=== PATIENT | male | born 1935 | race Caucasian/White ===

== ENCOUNTER 2022-06-18 13:37 | Inpatient (IN) ==
--- NOTE | 2022-06-18 14:03 | Internal Med History&Physical ---
HPI History of Present Illness Patient information: Note initiated : 06/18/22 at 1:59 pm Service Date, if different from initiated Date: [] Patient: Patrice Canseco a 87 y/o M admitted on for Cholecystitis. Chief Complaint: [abdominal pain] Chief complaint: abdominal pain History of present illness: Mr. Canseco is a 87 year old M history of atrial fibrillation's, type 2 diabetes mellitus, essential hypertensions, dyslipidemia, restless leg syndrome, hypothyroidism, presenting with a few day history of abdominal pain with associated nausea vomiting. The abdominal pain is located in the right upper quadrant, cramping, constant, moderate to severe in severity. Outside hospital evaluations with abdominal ultrasound follow-up with CT of the abdomen showing signs of acute acalculous cholecystitis. Due to the fact that it will have to surgery on board, they request hospital to hospital transfer for surgical consultations. Dr. Jolley will be consulted on the case for potential surgical management. Patient takes Eliquis for his atrial fibrillation scholast and June 17. Moreover, patient's found to have hyper glycemia uncontrolled type 2 diabetes mellitus with admitting blood sugar level in the 300s. There is no reported LFT abnormalities. Constitutional Constitutional: Absent chills, excessive sweating, fatigue, fever(s) or weakness EENT Eyes: Absent blurry vision, change in vision, loss of vision or other visual disturbances Ears: Absent decreased hearing or tinnitus Nose, mouth and throat: Absent abnormal hearing, dry mouth, headache(s), nasal congestion or sore throat Cardiovascular Cardiovascular: Absent chest pain, chest pain at rest, edema, irregular heart rhythm or palpatations Respiratory Respiratory: Absent cough, dyspnea or wheezing Gastrointestinal Gastrointestinal: Present as per HPI, abdominal pain, nausea and vomiting; Absent constipation or diarrhea Musculoskeletal Musculoskeletal: Absent back pain, deformity, limited range of motion, muscle cramps, muscle weakness or numbness Integumentary Integumentary: Absent lesions, rash or wounds Neurological Neurological: Absent focal weakness, headache(s) or numbness Psychiatric Psychiatric: Absent anxiety, depression or hallucinations PFSH PFSH All Active Problems (Updated 06/18/22 @ 14:06 by Benjamin Manning MD) Acalculous cholecystitis (Acute) DMII (diabetes mellitus, type 2) (Acute) Atrial fibrillation (Acute) Dog bite (Acute) Low back pain (Acute) Right inguinal nerve entrapment syndrome (Acute) Sacroiliac joint dysfunction of right side (Acute) Gastritis (Acute) Tinea (Acute) Acute serous otitis media, right ear (Acute) Lower extremity edema (Acute) Otitis externa (Acute) Hyperkalemia (Acute) Annual physical exam (Acute) Restless leg syndrome (Acute) Secondary hyperparathyroidism of renal origin (Chronic) Localized edema due to fluid overload (Chronic) 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 (Chronic) Tinea cruris (Acute) Lung nodule (Acute) Pneumonia (Acute) Macroscopic hematuria (Acute) Medicare annual wellness visit, subsequent (Acute) Chronic kidney disease (CKD) stage G3a/A3, moderately decreased glomerular filtration rate (GFR) between 45-59 mL/min/1.73 square meter and albuminuria creatinine ratio greater than 300 mg/g (Chronic) Pain in left shoulder (Chronic) Benign prostatic hyperplasia with urinary obstruction (Chronic) Seizure disorder (Chronic) Erectile dysfunction (Chronic) Migraine (Chronic) Myalgia (Chronic) Back pain (Chronic) Peripheral neuropathy (Chronic) Intervertebral lumbar disc disorder with myelopathy, lumbar region (Chronic) Dermatitis (Chronic) Pulmonary nodule (Chronic) Hypertriglyceridemia (Chronic) Right inguinal pain (Chronic) Leg pain (Chronic) Venous insufficiency (Chronic) Hyperlipidemia (Chronic) Anxiety and depression (Chronic) Finger pain (Chronic) Neuralgia, neuritis, and radiculitis, unspecified (Chronic) RLQ abdominal pain (Chronic) Hypertension (Chronic) Gutierres's palsy (Chronic) Hip pain, right (Chronic) Hypothyroidism (Chronic) Osteoarthritis (Chronic) Allergic rhinitis (Chronic) Fatigue (Chronic) Sleep apnea (Chronic) Daytime hypersomnia (Chronic) Macular degeneration (Chronic) Encounter for long-term current use of medication (Chronic) Dehydration (Chronic) Vertigo (Chronic) Dizziness (Chronic) Anxiety (Chronic) GERD (gastroesophageal reflux disease) (Chronic) Arthralgia (Chronic) Muscle spasm (Chronic) Pain in right shoulder (Chronic) Uncontrolled type 2 diabetes mellitus with insulin therapy (Chronic) Medical History (Updated 06/18/22 @ 14:06 by Benjamin Manning MD) Abnormal angiogram (~04/30/19) Per Dr. Sharp four-vessel cerebral angiography with severe areas of intracranial stenosis. Most prominent left vertebral artery. Right anterior temporal artery which is severe, right A1 segment of the right RIAN moderately severe. Acute serous otitis media, right ear Allergic rhinitis Annual physical exam Anxiety Anxiety and depression Arthralgia Back pain Gutierres's palsy Affecting left face/eye winter 2013, persisting Benign prostatic hyperplasia with urinary obstruction Daytime hypersomnia Dehydration Dermatitis Dizziness Encounter for long-term current use of medication Erectile dysfunction Fatigue Finger pain GERD (gastroesophageal reflux disease) Hearing loss Pure Tone/Hearing Aids Hip pain, right Hyperlipidemia Hypertension Hypertriglyceridemia Hypothyroidism Intervertebral lumbar disc disorder with myelopathy, lumbar region Leg pain Lower extremity edema Lung nodule Macroscopic hematuria Macular degeneration Medicare annual wellness visit, subsequent Migraine Muscle spasm Myalgia Neuralgia, neuritis, and radiculitis, unspecified Osteoarthritis Otitis externa Pain in left shoulder Pain in right shoulder Peripheral neuropathy Pneumonia Pulmonary nodule Restless leg syndrome Right inguinal pain RLQ abdominal pain Seizure disorder Sleep apnea Stenosis of intracranial vessel Tinea Tinea cruris Uncontrolled type 2 diabetes mellitus with insulin therapy Venous insufficiency Vertigo Surgical History History of eye surgery (~2014) Left eye lid drooping, negatively affecting his vision and balance History of surgery (~2007) Implanted stimulator History of surgery 10/03/2019-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 Hx of inguinal hernia surgery (~2006) Family History Other Cancer Diabetes HTN (hypertension) Social History marital status: occupational status: retired alcohol intake frequency: does not drink substance use type: does not use MEDS/ALLERGIES Home Medications and Allergies Home Medications Medication Instructions Recorded Confirmed Type cyclosporine 0.05 % eye drops in a 1 drp ophthalmic (eye) Q12H 08/09/17 03/31/22 History dropperette (Restasis) loratadine 10 mg tablet (Claritin) 10 mg PO QDAY PRN 12/26/17 03/31/22 History cholecalciferol (vitamin D3) 125 1,000 unit PO QWEEK 09/28/18 03/31/22 History mcg (5,000 unit) tablet hydroxyzine HCl 25 mg tablet 25 mg PO QHS PRN itching #30 tabs 06/10/19 03/31/22 Rx acetaminophen 650 mg 650 mg PO Q8H 07/26/19 03/31/22 History tablet,extended release (Arthritis Pain Relief (acetaminophen) ER) lancing device with lancets kit #300 ea 06/25/20 03/31/22 Rx (Accu-Chek Softclix Lancing Device+Lancets kit) nystatin 100,000 unit/gram topical 1 applic topical BID #60 grams 03/30/21 03/31/22 Rx powder hydrochlorothiazide 25 mg tablet 25 mg PO QDAY #90 tabs 06/24/21 03/31/22 Rx oxybutynin chloride 5 mg 5 mg PO QDAY #90 tabs 06/24/21 03/31/22 Rx tablet,extended release 24 hr ciprofloxacin 0.3 %-dexamethasone 4 drp otic (ear) BID 7 days #7.5 mL 08/10/21 03/31/22 Rx 0.1 % ear drops,suspension (Ciprodex) ketoconazole 2 % topical cream See Rx Instructions .Route 09/28/21 03/31/22 Rx .COMPLEX #30 grams pen needle, diabetic 32 gauge x #100 ea 10/13/21 03/31/22 Rx 5/32" (BD Ultra-Fine Rae Pen Needle) thyroid (pork) 30 mg tablet 30 mg PO QDAY #90 tabs 10/21/21 03/31/22 Rx ([place] Thyroid) lidocaine 5 % topical patch See Rx Instructions .Route 12/21/21 03/31/22 Rx .COMPLEX #30 patches apixaban 5 mg tablet (Eliquis) 5 mg PO BID 3 months #180 tabs 12/27/21 03/31/22 Rx rosuvastatin 10 mg tablet (Crestor) 10 mg PO QDAY #90 tabs 01/04/22 03/31/22 Rx metoprolol tartrate 25 mg tablet 25 mg PO BID #180 tabs 01/19/22 03/31/22 Rx furosemide 20 mg tablet 20 mg PO QDAY #90 tabs 02/02/22 03/31/22 Rx ropinirole 0.5 mg tablet 0.5 mg PO BID #180 tabs 02/09/22 03/31/22 Rx blood sugar diagnostic (Accu-Chek #100 ea 03/08/22 03/31/22 Rx Dorothy Plus test strips) blood-glucose meter (Accu-Chek #1 ea 03/08/22 03/31/22 Rx Dorothy Plus Meter) escitalopram oxalate 20 mg tablet 20 mg PO QDAY #90 tabs 03/17/22 03/31/22 Rx (Lexapro) clobetasol 0.05 % topical cream 1 applic topical BID PRN puritus 2 03/31/22 03/31/22 Rx weeks #30 grams irbesartan 150 mg tablet (Avapro) 150 mg PO QDAY #180 tabs 05/24/22 Rx tramadol 50 mg tablet 50 mg PO TID PRN Pain #90 tabs 05/24/22 Rx insulin lispro 100 unit/mL 5 unit (0.05 mL) subcut TID 90 06/08/22 Rx subcutaneous pen (Humalog KwikPen days #15 mL (U-100) Insulin) insulin glargine 100 unit/mL (3 54 unit (0.54 mL) subcut QHS #45 mL 06/16/22 Rx mL) subcutaneous pen (Basaglar KwikPen U-100 Insulin) Allergies Allergy/AdvReac Type Severity Reaction Status Date / Time clonazepam [From Klonopin] Allergy Unknown Unknown Verified 03/31/22 12:55 colesevelam [From WelChol] Allergy Unknown Unknown Verified 03/31/22 12:55 doxycycline Allergy Unknown Unknown Verified 03/31/22 12:55 Rosiglitazone [From Avandia] Allergy Unknown Unknown Verified 03/31/22 12:55 simvastatin Allergy Unknown Unknown Verified 03/31/22 12:55 EXAM Constitutional General appearance: cooperative and no acute distress Head Head exam: Present atraumatic and normocephalic Eye Eye exam: Present EOMI and PERRL ENT ENT exam: Present mucous membranes moist, normal exam and normal external ear exam Neck Neck exam: Present normal inspection; Absent lymphadenopathy, tenderness or thyromegaly Respiratory Respiratory exam: Absent accessory muscle use, respiratory distress or wheezes Cardiovascular Cardiovascular exam: Present irregular rhythm; Absent JVD GI/Abdominal GI/Abdominal exam: Present normal bowel sounds, soft and tenderness; Absent organomegaly Rectal Rectal exam: Present deferred Extremities Exam Extremities exam: Present full ROM, normal capillary refill and normal inspection; Absent tenderness Neurological Exam Neurological exam: Present alert, CN II-XII intact and oriented X3; Absent motor sensory deficit Psychiatric Psychiatric exam: Present normal affect and normal mood; Absent anxious or depressed Skin Skin exam: Present dry and intact A/P Assessment and plan (1) 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 Acalculous cholecystitis: Inpatient med surg Consult general surgeon Dr. Jolley for surgical management Serial lactic acid Blood culture cbc w/ auto diff in the morning to trend WCB NPO with IV fluid D5LR@100cc/hr Zosyn Tylenol Zofran Oxycodone Morphine Hold Eliquis 2. Atrial fibrillation: Hold Eliquis for possible surgery Metoprolol tartrate for rate control Lopressor IV PRN tachycardia 3. Hypertension in chronic kidney disease III with T2DM: HgA1c Hold any oral hypoglycemics Lnatus 54 unit HS High dose Insulin Lispro SSI q6hr Accu Check q6hr Hypoglycemia protocol NPO with IV fluid D5LR@100cc/hr Avoid nephrotoxic agents CMP in the morning to trend kidney functions Irbesartan 4. Hyperlipidemia: Crestor 5. Hypothyroidism: Continue thyroid replacement therapy 6. Restless Leg Syndrome: Ropinirole 7. Depression/Anxiety: Lexapro GI ppx: not currently indicated DVT ppx: SCDs Code status: Full Prognosis: guarded Disposition: inpatient med surg Time Spent With Patient Time: Total time spent is greater than 50% in coordination of care (as documented) at patient's floor/unit and/or counseling patient: Initial: Total time with patient: 55 - 74 minutes
--- OUTSIDE RECORDS SUMMARY | 2022-06-18 15:30 | External Medical Summary ---
:1935 Author Care Team Providers Name Role Phone DR. RAYMUNDO CARLOS Primary Care Provider [phone] DR. MAXIMILIAN TATE Referring Provider Unavailable ASHLEY VARGAS MD Referring Provider [phone] ASHLEY VARGAS MD Primary Care Provider [phone] Allergies Code Code System Name Reaction Severity Status Onset 2598 RxNorm Clonazepam Active 145151 RxNorm Colesevelam Active 3640 RxNorm Doxycycline Active 20250107 RxNorm Klonopin Respiratory Distress Active 05254 RxNorm Rosiglitazone Active 97808 RxNorm Simvastatin Active Notes: Some allergies listed in Docume nt: #[id number] could not be added to this patient's chart. Please review this docu ment and add these allergies to the patient's chart manually as needed. Medications Name Status Start Date Stop Date Accu-Chek Guide test strips Completed 04/05 amlodipine 10 mg tablet Active Not avai lable Take 1 tablet by oral route at bedtime. amlodipine 5 mg tablet Completed 9 amoxicillin 875 mg tablet Completed 2018 [place] Thyroid 30 mg tablet Active Not available 1 tablet every 6 days aspirin 81 mg tablet Active Not availab le Take 1 tablet every day by oral route. BD Ultra-Fine Rae Pen Needle 32 gauge x 5/32" Completed 04/22/2019 clopidogrel 75 mg tablet Active Not siddharth ilable Take 1 tablet every day by oral route. diclofenac 1 % topical gel Completed 04/22 escitalopram 10 mg tablet Active Not av ailable Take 1 tablet every day by oral route. escitalopram 20 mg tablet Completed 2018 Fluzone High-Dose 1447-8694 (PF) 180 mcg/0.5 mL Completed 04/22/2019 intramuscular syringe glyburide 2.5 mg tablet Completed 04/22/20 19 hydrochlorothiazide 12.5 mg capsule Completed 04/22/2019 hydrochlorothiazide 12.5 mg tablet Completed 04/22/2019 hydrochlorothiazide 25 mg tablet Active Not available Take 1 tablet every day by oral route. irbesartan 150 mg tablet Active Not siddharth ilable Take 2 tablets every day by oral route. Lantus Solostar U-100 Insulin 100 unit/mL (3 mL) subcutaneous pe n Active Not available 53 units daily lidocaine 5 % topical patch Completed 04/05 meloxicam 7.5 mg tablet Completed 04/22/20 19 Novolog FlexPen U-100 Insulin aspart 100 unit/mL (3 mL) subcutan eous Active Not available 7 units plus sliding scale 3 times daily Novolog Mix 70-30 FlexPen U-100 Insulin 100 unit/mL Completed 04/22/2019 subcutaneous pen Ocuvite Eye Health Active Not available daily pantoprazole 40 mg tablet,delayed release Completed 04/22/2019 prednisolone acetate 1 % eye drops,suspension Completed 04/22/2019 Prevnar 13 (PF) 0.5 mL intramuscular syringe Completed 04/22/2019 Restasis 0.05 % eye drops in a dropperette Active Not available 1 drop in each eye 2 times daily ropinirole 0.5 mg tablet Active Not siddharth ilable 1 tablet 1-3 hours before bedtime rosuvastatin 10 mg tablet Completed 2018 scopolamine 1 mg over 3 days transdermal patch Completed 04/22/2019 Shingrix (PF) 50 mcg/0.5 mL intramuscular suspension, Completed 04/22/2019 kit Tekturna 150 mg tablet Completed 9 tramadol 50 mg tablet Active Not availa ble Take 2 tablets every day by oral route. tramadol ER 100 mg tablet,extended release 24 hr Completed 04/22/2019 Tylenol 8 Hour 650 mg tablet,extended release Active Not available Take 3 tablets every day by oral route. 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[place] Active External Hypertensive Disorder Active External Vascular Insufficiency Active External Allergic Rhinitis Active External Gastroesophageal Reflux Disease Active External Chronic Kidney Disease Stage 3 Active E xternal Benign Prostatic Hyperplasia with Outflow Obstruction Active External Osteoarthritis Active External Joint Pain Active External Shoulder Pain Active External Hip Pain Active External Backache Active External Spasm Active External Muscle Pain Active External Pain in Finger Active External Pain in Lower Limb Active External Vertigo Active External Dizziness Active External Daytime Hypersomnia Active External Sleep Apnea Active External Fatigue Active External Lung Mass Active External Right Lower Quadrant Pain Active [employer] al Renal Function Tests Abnormal Active Ex ternal Patient Encounter Status Active Externa l Inflammatory Dermatosis Active External Right Inguinal Pain Active External Intervertebral Disc Disorder of Lumbar Region with Active External Myelopathy Procedures Date Name Performed by 04/30/2019 Cerebral Angiogram Information not avai lable Notes: Four-vessel cerebra l arteriography demonstrates severe multiple areasof intracranial stenosis as described above. The most prominent maybe left vertebral artery origin stenosis as well as V4 segment of theleft vertebral artery [place] nosis immediately below the origin of theleft posterior inferior cerebral artery which may be causing vertigosymptoms.Anterior circulation, intracranial stenosis most promine nt in the right anterior tem poral artery which is severe and the right [id number] of the right RIAN which is moderately severe. 06/05/2014 Eye Surgery Information not avai lable Notes: LEFT EYE LID DROOPING 06/05/2006 Hernia Repair Information not avai lable Notes: Left & Right hernia repair Spinal Cord Stimulator Information not a vailable Results Lab Results None recorded. Past Encounters None recorded. Social History Tobacco Smoking Status Never Smoker Vaccine List Vaccine Type influenza, high dose seasonal 2018 influenza, seasonal, injectable 03/13/2019 pneumococcal conjugate PCV 13 03/13/2018 Plan of Care Reminders Provider Appointments None recorded. Lab None recorded. Referral None recorded. Procedures None recorded. Surgeries None recorded. Imaging None recorded. Vitals 07/01/2019 09:00AM Established Patient 15 Height Weight BMI Blood Pressure 5 ft 6 in 208 lbs 33.6 kg/m2 (1) 160/74 mm[H g] (2) 152/93 mm[Hg ] 05/20/2019 02:00PM New Patient 30 Height Weight BMI Blood Pressure 5 ft 6 in 202.8 lbs 32.7 kg/m2 142/70 mm[Hg] 04/22/2019 03:30PM New Patient 30 Height Weight BMI Blood Pressure 5 ft 6 in 203 lbs 32.8 kg/m2 (1) 138/72 mm[H g] (2) 156/69 mm[Hg ] 09/26/2018 Height Weight BMI Blood Pressure 5 ft 6 in 191.4 lbs 30.9 kg/m2 144/67 mm[Hg]
[2022-06-18] MEDS ORDERED: IPRATROPIUM/ALBUTEROL 3 ML AMPUL.NEB NEB PRN (16:36)
[2022-06-18] MEDS ORDERED: DEXTROSE 50% 50 ML VIAL IV PRN ×2 (16:36)
[2022-06-18] MEDS ORDERED: traZODone HCL 50 MG TABLET PO PRN (16:36)
[2022-06-18] MEDS ORDERED: METOPROLOL TARTRATE 5 MG/5 ML VIAL IV PRN (16:36)
[2022-06-18] MEDS ORDERED: DEXTROSE 31 GM ORAL.SUSP PO PRN ×2 (16:36)
[2022-06-18] MEDS ORDERED: ONDANSETRON 4 MG/2 ML VIAL IV PRN (16:36)
[2022-06-18] MEDS ORDERED: ACETAMINOPHEN 325 MG TABLET PO PRN (16:36)
[2022-06-18] MEDS ORDERED: morphine 4 MG/ML VIAL IV PRN (16:36)
[2022-06-18] MEDS ORDERED: CLOBETASOL PROPIONATE 1 DOSE TUBE TOPICAL PRN (17:08)
[2022-06-18] MEDS ORDERED: LORATADINE 10 MG TABLET PO PRN (17:08)
[2022-06-18] MEDS: oxyCODONE HCL 5 MG TABLET PO PRN (17:54)
[2022-06-18] MEDS: DEXTROSE 5%-LR 1,000 ML IV SCH (17:57)
[2022-06-18] MEDS: 0.9 % SODIUM CHLORIDE 10 ML SYRINGE IV SCH ×2 (17:57→21:17)
[2022-06-18] MEDS: INSULIN LISPRO 1 UNIT/0.01 ML UNIT SQ SCH ×2 (17:58→23:52)
--- NOTE | 2022-06-18 18:47 | General Surgery Consult Note ---
HPI Date of Consult Consult Date: 06/18/22 Primary Care Provider: Jamie Mars MD Consult Narrative Patient Information: Note initiated : 06/18/22 at 6:42 pm Service Date, if different from initiated Date: [] Patient: Patrice Canseco 87 y/o M admitted on 06/18/22 for Cholecystitis. I was called by [facility] earlier today, they had diagnosed patient with acalculus cholecystitis on CT scan. They have a surgeon available and on-call so unclear why they wanted to transfer the patient. They were told to discuss the patient with their surgeon and not transfer the patient. I was informed that our hospitalist had already accepted the patient the night before, I assured them that if the hospitalist had already accepted the patient that if he was transferred I would consult on him. Reviewing the work-up in [place], no ultrasound done, acalculus cholecystitis is not an outpatient diagnosis. Patient reports several hours worth of pain, however he no longer has any abdominal pain at this time. Patient currently denies nausea vomiting fevers or chills. Chief Complaint: [] Chief complaint: Abdominal pain cc:: CC: Benjamin Manning MD Review of Systems Review of systems: All systems reviewed, negative other than above PFSH PFSH All Active Problems Epigastric abdominal pain (Acute) Acalculous cholecystitis (Acute) DMII (diabetes mellitus, type 2) (Acute) Atrial fibrillation (Acute) Dog bite (Acute) Low back pain (Acute) Right inguinal nerve entrapment syndrome (Acute) Sacroiliac joint dysfunction of right side (Acute) Gastritis (Acute) Tinea (Acute) Acute serous otitis media, right ear (Acute) Lower extremity edema (Acute) Otitis externa (Acute) Hyperkalemia (Acute) Annual physical exam (Acute) Restless leg syndrome (Acute) Secondary hyperparathyroidism of renal origin (Chronic) Localized edema due to fluid overload (Chronic) 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 (Chronic) Tinea cruris (Acute) Lung nodule (Acute) Pneumonia (Acute) Macroscopic hematuria (Acute) Medicare annual wellness visit, subsequent (Acute) Chronic kidney disease (CKD) stage G3a/A3, moderately decreased glomerular filtration rate (GFR) between 45-59 mL/min/1.73 square meter and albuminuria creatinine ratio greater than 300 mg/g (Chronic) Pain in left shoulder (Chronic) Benign prostatic hyperplasia with urinary obstruction (Chronic) Seizure disorder (Chronic) Erectile dysfunction (Chronic) Migraine (Chronic) Myalgia (Chronic) Back pain (Chronic) Peripheral neuropathy (Chronic) Intervertebral lumbar disc disorder with myelopathy, lumbar region (Chronic) Dermatitis (Chronic) Pulmonary nodule (Chronic) Hypertriglyceridemia (Chronic) Right inguinal pain (Chronic) Leg pain (Chronic) Venous insufficiency (Chronic) Hyperlipidemia (Chronic) Anxiety and depression (Chronic) Finger pain (Chronic) Neuralgia, neuritis, and radiculitis, unspecified (Chronic) RLQ abdominal pain (Chronic) Hypertension (Chronic) Gutierres's palsy (Chronic) Hip pain, right (Chronic) Hypothyroidism (Chronic) Osteoarthritis (Chronic) Allergic rhinitis (Chronic) Fatigue (Chronic) Sleep apnea (Chronic) Daytime hypersomnia (Chronic) Macular degeneration (Chronic) Encounter for long-term current use of medication (Chronic) Dehydration (Chronic) Vertigo (Chronic) Dizziness (Chronic) Anxiety (Chronic) GERD (gastroesophageal reflux disease) (Chronic) Arthralgia (Chronic) Muscle spasm (Chronic) Pain in right shoulder (Chronic) Uncontrolled type 2 diabetes mellitus with insulin therapy (Chronic) Medical History Abnormal angiogram (~04/30/19) Per Dr. Sharp four-vessel cerebral angiography with severe areas of intracranial stenosis. Most prominent left vertebral artery. Right anterior temporal artery which is severe, right A1 segment of the right RIAN moderately severe. Acute serous otitis media, right ear Allergic rhinitis Annual physical exam Anxiety Anxiety and depression Arthralgia Back pain Gutierres's palsy Affecting left face/eye winter 2013, persisting Benign prostatic hyperplasia with urinary obstruction Daytime hypersomnia Dehydration Dermatitis Dizziness Encounter for long-term current use of medication Erectile dysfunction Fatigue Finger pain GERD (gastroesophageal reflux disease) Hearing loss Pure Tone/Hearing Aids Hip pain, right Hyperlipidemia Hypertension Hypertriglyceridemia Hypothyroidism Intervertebral lumbar disc disorder with myelopathy, lumbar region Leg pain Lower extremity edema Lung nodule Macroscopic hematuria Macular degeneration Medicare annual wellness visit, subsequent Migraine Muscle spasm Myalgia Neuralgia, neuritis, and radiculitis, unspecified Osteoarthritis Otitis externa Pain in left shoulder Pain in right shoulder Peripheral neuropathy Pneumonia Pulmonary nodule Restless leg syndrome Right inguinal pain RLQ abdominal pain Seizure disorder Sleep apnea Stenosis of intracranial vessel Tinea Tinea cruris Uncontrolled type 2 diabetes mellitus with insulin therapy Venous insufficiency Vertigo Surgical History History of eye surgery (~2014) Left eye lid drooping, negatively affecting his vision and balance History of surgery (~2007) Implanted stimulator History of surgery 10/03/2019-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 Hx of inguinal hernia surgery (~2006) Family History Other Cancer Diabetes HTN (hypertension) Social History marital status: occupational status: retired smoking status: Never smoker alcohol intake frequency: does not drink substance use type: does not use MEDS/ALLERGIES Home Medications and Allergies Home Medications Medication Instructions Recorded Confirmed Type loratadine 10 mg tablet (Claritin) 10 mg PO QDAY PRN Allergy Symptoms 12/26/17 06/18/22 History cholecalciferol (vitamin D3) 125 1,000 unit PO QWEEK 09/28/18 06/18/22 History mcg (5,000 unit) tablet lancing device with lancets kit #300 ea 06/25/20 03/31/22 Rx (Accu-Chek Softclix Lancing Device+Lancets kit) hydrochlorothiazide 25 mg tablet 25 mg PO QDAY #90 tabs 06/24/21 06/18/22 Rx pen needle, diabetic 32 gauge x #100 ea 10/13/21 03/31/22 Rx 5/32" (BD Ultra-Fine Rae Pen Needle) thyroid (pork) 30 mg tablet 30 mg PO QDAY #90 tabs 10/21/21 06/18/22 Rx ([place] Thyroid) apixaban 5 mg tablet (Eliquis) 5 mg PO BID 3 months #180 tabs 12/27/21 06/18/22 Rx rosuvastatin 10 mg tablet (Crestor) 10 mg PO QDAY #90 tabs 01/04/22 06/18/22 Rx metoprolol tartrate 25 mg tablet 25 mg PO BID #180 tabs 01/19/22 06/18/22 Rx furosemide 20 mg tablet 20 mg PO QDAY #90 tabs 02/02/22 06/18/22 Rx ropinirole 0.5 mg tablet 0.5 mg PO BID #180 tabs 02/09/22 06/18/22 Rx blood sugar diagnostic (Accu-Chek #100 ea 03/08/22 03/31/22 Rx Dorothy Plus test strips) blood-glucose meter (Accu-Chek #1 ea 03/08/22 03/31/22 Rx Dorothy Plus Meter) escitalopram oxalate 20 mg tablet 20 mg PO QDAY #90 tabs 03/17/22 06/18/22 Rx (Lexapro) clobetasol 0.05 % topical cream 1 applic topical BID PRN puritus 2 03/31/22 06/18/22 Rx weeks #30 grams irbesartan 150 mg tablet (Avapro) 150 mg PO QDAY #180 tabs 05/24/22 06/18/22 Rx tramadol 50 mg tablet 50 mg PO TID PRN Pain #90 tabs 05/24/22 06/18/22 Rx insulin lispro 100 unit/mL 5 unit (0.05 mL) subcut TID 90 06/08/22 06/18/22 Rx subcutaneous pen (Humalog KwikPen days #15 mL (U-100) Insulin) insulin glargine 100 unit/mL (3 50 unit subcut QHS 06/18/22 06/18/22 History mL) subcutaneous pen (Basaglar KwikPen U-100 Insulin) Allergies Allergy/AdvReac Type Severity Reaction Status Date / Time clonazepam [From Klonopin] Allergy Unknown Unknown Verified 03/31/22 12:55 colesevelam [From WelChol] Allergy Unknown Unknown Verified 03/31/22 12:55 doxycycline Allergy Unknown Unknown Verified 03/31/22 12:55 Rosiglitazone [From Avandia] Allergy Unknown Unknown Verified 03/31/22 12:55 simvastatin Allergy Unknown Unknown Verified 03/31/22 12:55 Physical Examination Vital Signs Vital signs: Temp Pulse Resp BP Pulse Ox O2 Del Method O2 Flow Rate 96.9 F L 89 14 136/80 95 2 06/18/22 15:57 06/18/22 15:57 06/18/22 15:57 06/18/22 15:57 06/18/22 15:57 06/18/22 15:57 06/18/22 15:57 General physical appearance General physical exam: well developed, well nourished and no distress Eyes Eye exam: PERRL and normal ocular movement ENT ENT exam: normal pinna, normal nares, normal mucosa, no hearing loss and no congestion Head Head exam IM: Present atraumatic and normocephalic Neck Neck exam: no masses, no bruits, trachea midline, no lymphadenopathy and no venous distension Cardiovascular Cardiovascular exam IM: Present normal rate and rhythm Respiratory Respiratory exam: normal expansion, normal respiratory effort, clear to percussion and clear to auscultation Abdomen Abdomen: Present soft, non tender (No Song sign.) and bowel sounds; Absent masses, guarding, rigid, rebound or distended Hernia: Present none Genitourinary Genitourinary (Male): Present normal penis with no external lesions Rectum Rectum: Present normal sphincter tone, no hemorrhoids, no tenderness, no masses and no bleeding Integumentary Integumentary: Present no rash, no growths and no abnormal pigmentation Neurologic Neurologic: Present normal coordination and normal sensation Musculoskeletal Musculoskeletal: Present normal gait and normal posture Psychiatric Psychiatric: Present oriented to time, oriented to person, oriented to place, speech is normal and memory intact Results Labs Labs: All other labs normal. 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 For epigastric abdominal pain I would recommend a right upper quadrant ultrasound to evaluate for possible Cholelithiasis and cholecystitis. Would recommend full laboratory data to rule out choledocholithiasis, pancreatitis or other causes of epigastric abdominal pain. We will follow-up on the studies. Time Spent With Patient Time: Total time spent is greater than 50% in coordination of care (as documented) at patient's floor/unit and/or counseling patient:
[2022-06-18] MEDS: PIPERACILLIN SODIUM/TAZOBACTAM 3.375 GM in DEXTROSE 5% IN WATER 50 ML IV SCH (20:58)
[2022-06-18] MEDS: DOCUSATE SODIUM 100 MG CAPSULE PO SCH (20:59)
[2022-06-18] MEDS: METOPROLOL TARTRATE 25 MG TABLET PO SCH (20:59)
[2022-06-18] MEDS: rOPINIRole 0.25 MG TABLET PO SCH (20:59)
[2022-06-18] MEDS ORDERED: SENNOSIDES 1 TABLET PO SCH (21:00)
[2022-06-18] MEDS ORDERED: ATORVASTATIN 20 MG TABLET PO SCH (21:00)
[2022-06-18] MEDS ORDERED: INSULIN GLARGINE, HUMAN 1 UNIT/0.01 ML SQ SCH (21:00)
[2022-06-19] MEDS: PIPERACILLIN SODIUM/TAZOBACTAM 3.375 GM in DEXTROSE 5% IN WATER 50 ML IV SCH ×3 (00:10→11:30)
[2022-06-19] MEDS: DEXTROSE 5%-LR 1,000 ML IV SCH ×2 (04:04→11:40)
[2022-06-19] MEDS: oxyCODONE HCL 5 MG TABLET PO PRN ×2 (04:04→12:43)
[2022-06-19] MEDS: 0.9 % SODIUM CHLORIDE 10 ML SYRINGE IV SCH ×2 (05:46→12:03)
[2022-06-19] MEDS: INSULIN LISPRO 1 UNIT/0.01 ML UNIT SQ SCH (06:10)
[2022-06-19 07:03] LABS: Basophils # (Auto) 0.04 K/mcL (0.00-0.30); Basophils % (Auto) 0.5 % (0.0-2.0); Eosinophils # (Auto) 0.21 K/mcL (0.00-0.70); Eosinophils % (Auto) 2.5 % (0.0-7.0); Hematocrit 44.2 % (40.1-51.0); Hemoglobin 14.4 g/dL (13.7-17.5); Lymphocytes # (Auto) 1.39 K/mcL (1.50-4.80); Lymphocytes % (Auto) 16.7 % (15.5-49.0); Mean Cell Volume 91.1 fL (80.0-100.0); Mean Corpuscular HGB Conc 32.6 g/dL (31.0-36.0); Monocytes # (Auto) 0.66 K/mcL (0.10-0.90); Monocytes % (Auto) 7.9 % (1.0-12.0); Platelet Count 168 K/mcL (140-440); RBC 4.85 M/mcL (4.63-6.08); Red Cell Distribution Width 13.4 % (11.5-14.5); WBC 8.3 K/mcL (4.5-11.0)
[2022-06-19 07:09] LABS: ALT/SGPT 6 U/L (<40); AST/SGOT 11 U/L (<40); Albumin 3.2 gm/dL (3.2-5.2); Albumin/Globulin Ratio 1.7 (1.0-2.3); Alkaline Phosphatase 74 U/L (39-117); Bilirubin,Total 1.2 mg/dL (0.1-1.0); Blood Urea Nitrogen 14 mg/dL (8-23); Calcium 8.4 mg/dL (8.6-10.4); Carbon Dioxide 30 mmol/L (22-30); Chloride 101 mmol/L (96-108); Globulin 1.9 gm/dL (2.2-3.7); Glomerular Filtration Rate 49; Glucose 73 mg/dL (70-105)
[2022-06-19 07:21] LABS: Estimated Average Glucose(eAG) 183 mg/dL
[2022-06-19] MEDS ORDERED: THYROID, PORK 60 MG TABLET PO SCH (07:30)
--- NOTE | 2022-06-19 08:00 | Internal Med Progress Note ---
SUBJECTIVE Subjective Patient information: Note initiated : 06/19/22 at 7:56 am Service Date, if different from initiated Date: [] Patient: Patrice Canseco a 87 y/o M admitted on 06/18/22 for Cholecystitis. Chief Complaint: [] Interval history: Mr. Canseco is a 87 year old M history of atrial fibrillation's, type 2 diabetes mellitus, essential hypertensions, dyslipidemia, restless leg syndrome, hypothyroidism, presenting with a few day history of abdominal pain with associated nausea vomiting. The abdominal pain is located in the right upper quadrant, cramping, constant, moderate to severe in severity. Outside hospital evaluations with abdominal ultrasound follow-up with CT of the abdomen showing signs of acute acalculous cholecystitis. Due to the fact that it will have to surgery on board, they request hospital to hospital transfer for surgical consultations. Dr. Jolley will be consulted on the case for potential surgical management. Patient takes Eliquis for his atrial fibrillation scholast and June 17. Moreover, patient's found to have hyper glycemia uncontrolled type 2 diabetes mellitus with admitting blood sugar level in the 300s. There is no reported LFT abnormalities. 06/19: Fasting glucose 73 this morning. Patient shows severe oxygen desaturations overnight. Patient admits that he used to use CPAP machine at night but he stopped using it couple months ago. Dr. Jolley evaluated the patient and he is undecided about surgery at this moment. He ordered a repeat abdominal ultrasound. Patient is complaining of mild to moderate pain located in right lower quadrant abdomen. He denies any nausea or vomiting at this moment. Pending abdominal ultrasound. I will also order serum lipase and triglyceride level. Respiratory therapy consultations. VBG. We will start patient on CPAP. Continue IV fluid for the moment. Patient is currently n.p.o., will check with Dr. Jolley regarding whether to feed the patient's with clear liquid diet or not. Decrease Lantus from 50 to 40 units at bedtime to avoid hypoglycemia. Continue sliding scale insulin. Continue narcotics and antiemetics for abdominal pain symptoms management. Continue Zosyn. Constitutional Vitals: Vital Signs Temp Pulse Resp BP Pulse Ox O2 Del Method O2 Flow Rate 36.1 C 69 20 132/80 98 2 06/19/22 07:03 06/19/22 07:03 06/19/22 07:03 06/19/22 07:03 06/19/22 07:44 06/19/22 07:44 06/19/22 07:44 Period Temp Pulse Resp BP Sys/[place] Pulse Ox O2 Del Method O2 Flow Rate Last 24 Hr 35.8 C-36.1 C 67-91 14-20 123-140/67-80 95-98 Nasal Cannula- Room Air 0-2 Intake and Output 06/18/22 06/19/22 06/19/22 19:59 03:59 11:59 Intake Total 100 1150 Output Total 350 400 150 Balance -350 -300 1000 Weight 88.451 kg 86.891 kg Intake & Output: Intake & Output 06/18/22 06/19/22 06/19/22 19:59 03:59 11:59 Intake Total 100 1150 Output Total 350 400 150 Balance -350 -300 1000 Weight 88.451 kg 86.891 kg Intake: IV 100 1050 Dextrose 5%-Lactated Ringers 1, 1000 000 ml @ 100 mls/hr IV .Q10H [facility] Rx#:[id number] Zosyn 3.375 gm In Dextrose 5% 100 50 in Water 50 ml @ 100 mls/hr IV Q6H [facility] Rx#:[id number] Oral 100 Output: Void Amount 350 400 150 Other: Urine Appearance Clear Clear Clear Urine Color Yellow Yellow Yellow Urine Odor Normal Head Head exam: Present atraumatic and normal inspection Eye Eye exam: Present normal appearance ENT ENT exam: Present mucous membranes moist, normal exam and normal external ear e xam Additional comments: Oxygen mask in place Neck Neck exam: Present normal inspection Respiratory Respiratory exam: Present normal respiratory exam Cardiovascular Cardiovascular exam: Present irregular rhythm GI/Abdominal GI/Abdominal exam: Present tenderness Back Exam Back exam: Present normal inspection Neurological Exam Neurological exam: Present alert and oriented X3 Skin Skin exam: Present intact and warm OBJ DATA Labs CBC & Chem 7: 06/19/22 05:36 06/19/22 05:36 Labs: Abnormal Lab Results 06/19/22 06/19/22 06/19/22 05:36 05:36 05:36 Lymph # (Auto) 1.39 L Creatinine 1.3 H Hemoglobin A1c 8.0 H Calcium 8.4 L Total Bilirubin 1.2 H Total Protein 5.1 L Globulin 1.9 L Meds: Medications Acetaminophen (Acetaminophen 325 Mg Tablet) 650 mg PO Q6HP PRN; Protocol PRN Reason: Per Pain Protocol/Fever > 101 Albuterol/Ipratropium (Ipratropium/Albuterol 3 Ml Ampul.Neb) 3 ml NEB Q4HRT PRN PRN Reason: Wheezing Atorvastatin Calcium (Atorvastatin 20 Mg Tablet) 20 mg PO HS [facility] Last Admin: 06/18/22 20:59 Dose: 20 mg Clobetasol Propionate (Clobetasol Propionate 1 Dose Tube) 1 dose TOPICAL BID PRN PRN Reason: puritus Dextrose (Dextrose 50% 50 Ml Vial) 0 ml IV UD PRN PRN Reason: Per Sliding Scale Diagnostic Test (Pha) (Accu-Chek 1 Each Strip) 1 each FS ACHS [facility] Last Admin: 06/19/22 06:10 Dose: 1 each Docusate Sodium (Docusate Sodium 100 Mg Capsule) 100 mg PO BID [facility] Last Admin: 06/18/22 20:59 Dose: 100 mg Escitalopram Oxalate (Escitalopram 20 Mg Tablet) 20 mg PO QDAY [facility] Glucose (Dextrose 31 Gm Oral.Susp) 15 gm PO PRN PRN PRN Reason: Hypoglycemia Dextrose/Lactated Ringer's (Dextrose 5%-Lactated Ringers) 1,000 mls @ 100 mls/hr IV .Q10H [facility] Last Admin: 06/19/22 04:04 Dose: 100 mls/hr Piperacillin Sod/Tazobactam (Sod 3.375 gm/ Dextrose) 50 mls @ 100 mls/hr IV Q6H [facility]; Protocol Last Infusion: 06/19/22 06:20 Dose: Infused Insulin Glargine (Insulin Glargine, Human 1 Unit/0.01 Ml) 40 unit SQ [facility] Insulin Human Lispro (Insulin Lispro 1 Unit/0.01 Ml Unit) 0 unit SQ Q6 [facility]; Protocol Last Admin: 06/19/22 06:10 Dose: Not Given Loratadine (Loratadine 10 Mg Tablet) 10 mg PO QDAY PRN PRN Reason: Allergy Symptoms Losartan Potassium (Losartan 50 Mg Tablet) 50 mg PO DAILY [facility] Metoprolol Tartrate (Metoprolol Tartrate 5 Mg/5 Ml Vial) 5 mg IV Q5M PRN PRN Reason: Tachyarrhythmias Metoprolol Tartrate (Metoprolol Tartrate 25 Mg Tablet) 25 mg PO BID [facility] Last Admin: 06/18/22 20:59 Dose: 25 mg Morphine Sulfate (Morphine 4 Mg/Ml Vial) 4 mg IV Q4HP PRN; Protocol PRN Reason: Per Pain Protocol Ondansetron HCl (Ondansetron 4 Mg/2 Ml Vial) 4 mg IV Q6HP PRN PRN Reason: Nausea And Vomiting Oxycodone HCl (Oxycodone Hcl 5 Mg Tablet) 5 mg PO Q4HP PRN; Protocol PRN Reason: Per Pain Protocol Last Admin: 06/19/22 04:04 Dose: 5 mg Ropinirole HCl (Ropinirole 0.25 Mg Tablet) 0.5 mg PO BID@1200,2100 [facility] Last Admin: 06/18/22 20:59 Dose: 0.5 mg Senna (Sennosides 1 Tablet) 2 tab PO HS [facility] Last Admin: 06/18/22 20:59 Dose: 2 tab Sodium Chloride (0.9 % Sodium Chloride 10 Ml Syringe) 10 ml IV Q8 [facility] Last Admin: 06/19/22 05:46 Dose: 10 ml Thyroid (Thyroid, Pork 60 Mg Tablet) 30 mg PO ACB [facility] Last Admin: 06/19/22 07:04 Dose: 30 mg Trazodone HCl (Trazodone Hcl 50 Mg Tablet) 25 mg PO HSP PRN PRN Reason: Insomnia Vitamin D (Vitamin D3 125 Mcg Tablet) mcg PO QWEEK [facility] A/P Assessment and plan (1) 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 Acalculous cholecystitis: Inpatient med surg Consult general surgeon Dr. Jolley for surgical management. Dr. Jolley evaluated the patient and he is undecided about surgery at this moment. He ordered a repeat abdominal ultrasound. Serum lipase Serum triglyceride Serial lactic acid Blood culture, no growth to date cbc w/ auto diff in the morning to trend WCB NPO with IV fluid D5LR@100cc/hr. Will check with Dr. Jolley regarding diet later Zosyn Tylenol Zofran Oxycodone Morphine Hold Eliquis 2. Atrial fibrillation: Hold Eliquis for possible surgery Metoprolol tartrate for rate control Lopressor IV PRN tachycardia 3. Hypertension in chronic kidney disease III with T2DM: HgA1c Hold any oral hypoglycemics Lantus 5o-->40 unit HS to avoid hypoglycemia High dose Insulin Lispro SSI q6hr Accu Check q6hr Hypoglycemia protocol NPO with IV fluid D5LR@100cc/hr Avoid nephrotoxic agents CMP in the morning to trend kidney functions Irbesartan 4. Hyperlipidemia: Crestor 5. Hypothyroidism: Continue thyroid replacement therapy 6. Restless Leg Syndrome: Ropinirole 7. Depression/Anxiety: Lexapro 8. Obstructive sleep apnea: Consult respiratory therapy VBG CPAP GI ppx: not currently indicated DVT ppx: SCDs Code status: Full Prognosis: guarded Disposition: inpatient med surg Time Spent With Patient Time: Total time spent is greater than 50% in coordination of care (as documented) at patient's floor/unit and/or counseling patient: Subsequent: Total time with patient: 35 - 49 minutes QUALITY Stroke Symptom Onset Unknown: No VTE Deep Vein Thrombosis/Pulmonary Embolism Present on Admission: No
[2022-06-19] MEDS ORDERED: LOSARTAN 50 MG TABLET PO SCH (09:00)
[2022-06-19] MEDS ORDERED: ESCITALOPRAM 20 MG TABLET PO SCH (09:00)
[2022-06-19] MEDS: METOPROLOL TARTRATE 25 MG TABLET PO SCH (09:18)
[2022-06-19] MEDS: DOCUSATE SODIUM 100 MG CAPSULE PO SCH (09:18)
--- NOTE | 2022-06-19 09:19 | Ultrasound Report ---
History: Right upper quadrant pain FINDINGS: The liver is normal in size and homogeneous. Doppler shows normal flow in the hepatic and portal veins. No ascites is present. The gallbladder wall is abnormally thickened measuring up to 7 mm. The patient was nontender while scanning over the gallbladder. There is a small amount of sludge within the lumen and there are a few small noncalcified stones. Common bile duct is normal in caliber and measures 4.9 mm. The pancreas is largely obscured by overlying bowel gas. There is increased echogenicity of the head of the pancreas which correlates with fatty infiltration seen on the prior abdomen CT done on 09/20/21. The right kidney is normal. There is no kidney stone or hydronephrosis. No ascites is present. Visualized portions of the aorta and inferior vena cava are normal. IMPRESSION: Cholelithiasis and abnormally thickened gallbladder wall consistent with chronic cholecystitis Interpreted and Authenticated by: Bowen Stevens 06/19/22
[2022-06-19 09:28] LABS: ABG Methemoglobin 0.2 % (0.4-1.5); VBG Base Excess 4 (-2-3); VBG HCO3 28.7 mmol/L (24.0-28.0); VBG Oxygen Saturation 89.8 % (40.0-70.0); VBG PH 7.44 U (7.32-7.42); VBG PO2 72.5 mmHg (25.0-40.0)
[2022-06-19] MEDS ORDERED: INSULIN LISPRO 1 UNIT/0.01 ML UNIT SQ SCH (11:30)
[2022-06-19] MEDS: rOPINIRole 0.25 MG TABLET PO SCH (11:36)
--- NOTE | 2022-06-19 13:50 | Discharge Summary ---
Discharge Provider Provider IMPORTANT FOLLOW-UP INFORMATION FOR PCP: Patient information: Note initiated : 06/19/22 at 1:47 pm Service Date, if different from initiated Date: [] Patient: Patrice Canseco 87 y/o M admitted on 06/18/22 for Cholecystitis. Chief Complaint: [] Date of admission: 06/18/22 15:27 Discharge date: 06/19/22 Primary care physician: Jamie Mars MD Attending physician on admission: Benjamin Manning Consults: 06/18/22 16:36 Consult to Physician [CONS] Routine Comment: Consulting Provider: Esteban Jolley Reason For Exam: Physician to Consult Attending physician on discharge: Benjamin Manning COURSE Hospital Course Hospital course: Mr. Canseco is a 87 year old M history of atrial fibrillation's, type 2 diabetes m ellitus, essential hypertensions, dyslipidemia, restless leg syndrome, hypothyroidism, presenting with a few day history of abdominal pain with associated nausea vomiting. The abdominal pain is located in the right upper quadrant, cramping, constant, moderate to severe in severity. Outside hospital evaluations with abdominal ultrasound follow-up with CT of the abdomen showing signs of acute acalculous cholecystitis. Due to the fact that it will have to surgery on board, they request hospital to hospital transfer for surgical consultations. Dr. Jolley will be consulted on the case for potential surgical management. Patient takes Eliquis for his atrial fibrillation sch and June 17. Moreover, patient's found to have hyper glycemia uncontrolled type 2 diabetes mellitus with admitting blood sugar level in the 300s. There is no reported LFT abnormalities. 06/19: Fasting glucose 73 this morning. Patient shows severe oxygen desaturations overnight. Patient admits that he used to use CPAP machine at night but he stopped using it couple months ago. Dr. Jolley evaluated the patient and he is undecided about surgery at this moment. He ordered a repeat abdominal ultrasound. Patient is complaining of mild to moderate pain located in right lower quadrant abdomen. He denies any nausea or vomiting at this moment. Pending abdominal ultrasound. I will also order serum lipase and triglyceride level. Respiratory therapy consultations. VBG. We will start patient on CPAP. Continue IV fluid for the moment. Patient is currently n.p.o., will check with Dr. Jolley regarding whether to feed the patient's with clear liquid diet or not. Decrease Lantus from 50 to 40 units at bedtime to avoid hypoglycemia. Continue sliding scale insulin. Continue narcotics and antieme tics for abdominal pain symptoms management. Continue Zosyn. Cleared from surgical standpoint to be discharged home. Follow up with PCP instructed. All questions answered prior to patient being physically discharged. Discharge diagnosis: Chronic cholecystitis Time Spent with Patient Time attestation: Total time spent providing and/or coordinating discharge services: Time spent: Less than 30 minutes EXAM Constitutional Vitals: Temp Pulse Resp BP Pulse Ox O2 Del Method O2 Flow Rate 36.0 C L 83 16 136/61 96 3 06/19/22 11:40 06/19/22 11:40 06/19/22 11:40 06/19/22 11:40 06/19/22 11:40 06/19/22 11:40 06/19/22 11:40 General appearance: cooperative and no acute distress Head Head exam: Present atraumatic and normocephalic Eye Eye exam: Present EOMI and PERRL ENT ENT exam: Present mucous membranes moist, normal exam and normal external ear exam Neck Neck exam: Present normal inspection; Absent lymphadenopathy, tenderness or thyromegaly Respiratory Respiratory exam: Absent accessory muscle use, respiratory distress or wheezes Cardiovascular Cardiovascular exam: Present normal rate and rhythm; Absent JVD GI/Abdominal GI/Abdominal exam: Present normal bowel sounds, soft and tenderness; Absent organomegaly Rectal Rectal exam: Present deferred Extremities Exam Extremities exam: Present full ROM, normal capillary refill and normal inspection; Absent tenderness Neurological Exam Neurological exam: Present alert, CN II-XII intact and oriented X3; Absent motor sensory deficit Psychiatric Psychiatric exam: Present normal affect and normal mood; Absent anxious or depressed Skin Skin exam: Present dry and intact Discharge Data Data Completed and Pending Labs on day of discharge: Labs from last 24 hours 06/19/22 06/19/22 06/19/22 09:03 08:01 05:36 WBC RBC Hgb Hct MCV MCH MCHC RDW Plt Count MPV Immature Gran % (Auto) Neut % (Auto) Lymph % (Auto) [place] % (Auto) Eos % (Auto) Baso % (Auto) Lymph # (Auto) [place] # (Auto) Eos # (Auto) Baso # (Auto) Immature Gran # Absolute Neutrophils POC pH 7.39 POC pCO2 54.7 H* POC pO2 83 POC HCO3 32.9 H POC Total CO2 35.0 H POC ABG Base Excess 8.0 H ABG Methemoglobin 0.2 L ABG Lactic Acid 0.4 L VBG pH 7.44 H VBG pCO2 43.0 VBG pO2 72.5 H VBG HCO3 28.7 H VBG Total CO2 30.0 H VBG O2 Saturation 89.8 H VBG Base Excess 4 H Hgb O2 Saturation 96.0 Carboxyhemoglobin 5.1 H Total Hemoglobin 16.0 Sodium Potassium Chloride Carbon Dioxide Anion Gap BUN Creatinine GFR Calculation Glucose Hemoglobin A1c 8.0 H Estim Average Glucose 183 Calcium Total Bilirubin AST ALT Alkaline Phosphatase Total Protein Albumin Globulin Albumin/Globulin Ratio 06/19/22 06/19/22 05:36 05:36 WBC 8.3 RBC 4.85 Hgb 14.4 Hct 44.2 MCV 91.1 MCH 29.7 MCHC 32.6 RDW 13.4 Plt Count 168 MPV 11.0 Immature Gran % (Auto) 0.4 Neut % (Auto) 72.0 Lymph % (Auto) 16.7 [place] % (Auto) 7.9 Eos % (Auto) 2.5 Baso % (Auto) 0.5 Lymph # (Auto) 1.39 L [place] # (Auto) 0.66 Eos # (Auto) 0.21 Baso # (Auto) 0.04 Immature Gran # 0.03 Absolute Neutrophils 6.01 POC pH POC pCO2 POC pO2 POC HCO3 POC Total CO2 POC ABG Base Excess ABG Methemoglobin ABG Lactic Acid VBG pH VBG pCO2 VBG pO2 VBG HCO3 VBG Total CO2 VBG O2 Saturation VBG Base Excess Hgb O2 Saturation Carboxyhemoglobin Total Hemoglobin Sodium 141 Potassium 3.4 Chloride 101 Carbon Dioxide 30 Anion Gap 10.0 BUN 14 Creatinine 1.3 H GFR Calculation 49 Glucose 73 Hemoglobin A1c Estim Average Glucose Calcium 8.4 L Total Bilirubin 1.2 H AST 11 ALT 6 Alkaline Phosphatase 74 Total Protein 5.1 L Albumin 3.2 Globulin 1.9 L Albumin/Globulin Ratio 1.7 Discharge Plan Patient/Caregiver Discharge Instructions Activity: increase activity as tolerated Diet: Consistent Carbohydrate Prescriptions: New ondansetron 4 mg tablet,disintegrating 4 mg PO Q8H PRN (Reason: nausea and vomiting) Qty: 20 0RF amoxicillin-pot clavulanate [Augmentin XR] 1,000-62.5 mg tablet extended release 12 hr 1 tab PO BID Qty: 20 0RF Continued hydrochlorothiazide 25 mg tablet 25 mg PO QDAY Qty: 90 4RF (DME) pen needle, diabetic [BD Ultra-Fine Rae Pen Needle] 32 gauge x 5/32" needle See Dose Instructions .ROUTE .MEDSUPPLY Qty: 100 11RF Dose Instruction: As directed Rx Instructions: Use with insulin injections four times daily thyroid (pork) [[place] Thyroid] 30 mg tablet 30 mg PO QDAY Qty: 90 1RF rosuvastatin [Crestor] 10 mg tablet 10 mg PO QDAY Qty: 90 1RF metoprolol tartrate 25 mg tablet 25 mg PO BID Qty: 180 1RF furosemide 20 mg tablet 20 mg PO QDAY Qty: 90 1RF ropinirole 0.5 mg tablet 0.5 mg PO BID Qty: 180 1RF Rx Instructions: at noon and hs (DME) Accu-Chek Dorothy Plus test strp Strip See Dose Instructions .ROUTE .MEDSUPPLY Qty: 100 11RF Dose Instruction: As directed Rx Instructions: Use to test three times daily (DME) blood-glucose meter [Accu-Chek Dorothy Plus Meter] Misc See Rx Instructions .Route Qty: 1 0RF Rx Instructions: Use to test BG three times daily escitalopram oxalate [Lexapro] 20 mg tablet 20 mg PO QDAY Qty: 90 1RF tramadol 50 mg tablet 50 mg PO TID PRN (Reason: Pain) Qty: 90 0RF Rx Instructions: *Must last 30 days irbesartan [Avapro] 150 mg tablet 150 mg PO QDAY Qty: 180 1RF insulin lispro [Humalog KwikPen Insulin] 100 unit/mL insulin pen 5 unit SUB-Q TID 90 Days Qty: 15 1RF Rx Instructions: Plus sliding scale at meal times. Max daily dose 30 units loratadine [Claritin] 10 mg tablet 10 mg PO QDAY PRN (Reason: Allergy Symptoms) cholecalciferol (vitamin D3) 5,000 unit tablet 1,000 unit PO QWEEK (DME) lancing device with lancets [Accu-Chek Soft Dev Lancets] Kit See Dose Instructions .ROUTE .MEDSUPPLY Qty: 300 3RF Rx Instructions: Use to test BG three times daily clobetasol 0.05 % cream 1 applic TOPICAL BID PRN (Reason: puritus) 14 Days Qty: 30 1RF Rx Instructions: Ok use for up to 2 weeks (BID) application. Eliquis 5 mg tablet 5 mg PO BID 90 Days Qty: 180 3RF insulin glargine [Basaglar KwikPen U-100 Insulin] 100 unit/mL (3 mL) insulin pen 50 unit subcut QHS Follow Up Plan Follow up with: Jamie Mars MD [Primary Care Provider] - Patient Disposition: Home, Self-Care Rehab Potential: Good I certify that the patient requires SNF services: No Overall status at discharge: patient is back to baseline Discharge Orders: Discharge Order (Routine); Ordered 06/19/22 Ordered By: Benjamin CUEVAS VTE Deep Vein Thrombosis/Pulmonary Embolism Present on Admission: No
[2022-06-19] MEDS ORDERED: INSULIN GLARGINE, HUMAN 1 UNIT/0.01 ML SQ SCH (21:00)
[2022-06-25] MEDS ORDERED: VITAMIN D3 125 MCG TABLET PO SCH (09:00)
== END 2022-06-19 15:19 | disposition home or self-care (01) | DRG 446 ==
LOC: MEDSUR 15:27
PROVIDERS: ADMIT Internal Medicine; ATTEND Internal Medicine